=== PATIENT | female | born 2000 | race Caucasian/White ===

== ENCOUNTER 2021-01-15 10:42 | Inpatient (IN) | payer BC, OTHER ==
[~2021-01-15] VITALS: Ht 160 cm; Wt 87.2 kg
[2021-01-16] MEDS ORDERED: NEWBORN KIT ONE (05:12)
[2021-01-16] MEDS ORDERED: OXYTOCIN 30U/ 0.9% NaCL 500ML 500 ML ONE ×2 (05:12→16:38)
[2021-01-16] MEDS ORDERED: LIDOCAINE 1%, 20ML ONE (05:13)
[2021-01-16] MEDS ORDERED: MISOPROSTOL 200 MCG TABLET ONE (05:13)
[2021-01-16] MEDS ORDERED: FENTANYL PF 100 MCG/2ML IV PRN (05:30)
[2021-01-16] MEDS ORDERED: TERBUTALINE 1 MG/ML, 1ML IVPush PRN (05:30)
[2021-01-16] MEDS ORDERED: OXYTOCIN 30U/ 0.9% NaCL 500ML 500 ML IV ONE (05:30)
[2021-01-16] MEDS ORDERED: LACTATED RINGERS 1,000 ML IV SCH (05:30)
[2021-01-16] MEDS ORDERED: D5%-LACTATED RINGERS 1,000 ML IV SCH (05:30)
[2021-01-16] MEDS ORDERED: OXYTOCIN 30U/ 0.9% NaCL 500ML 500 ML IV PRN (05:30)
[2021-01-16] MEDS ORDERED: PLEASE ENTER ALLERGIES MC SCH (05:30)
[2021-01-16] MEDS ORDERED: TERBUTALINE 1 MG/ML, 1ML SQ PRN (05:30)
[2021-01-16] MEDS ORDERED: ONDANSETRON 2MG/ML, 2ML IVPush PRN (05:30)
[2021-01-16] MEDS ORDERED: PREN1TAB62 PO (05:31)
[2021-01-16 05:34] VITALS: BP 119/75
[2021-01-16 06:05] LABS: BASOPHILS % (AUTO) 1 % (0-1); EOSINOPHILS % (AUTO) 1 % (1-7); LYMPHOCYTES % (AUTO) 27 % (22-44); MEAN CORPUSCULAR HEMOGLOBIN 26.9 pg (27.0-34.8); MEAN CORPUSCULAR HGB CONC 33.2 g/dL (32.4-35.8); MEAN PLATELET VOLUME 9.2 fL (7.4-10.4); MONOCYTES % (AUTO) 5 % (2-9); NEUTROPHILS % (AUTO) 67 % (42-75); PLATELET COUNT 119 x10^3/uL (130-400); RED BLOOD COUNT 4.53 x10^6/uL (3.82-5.3); RED CELL DISTRIBUTION WIDTH 14.9 % (9.6-15.2)
[2021-01-16 06:21] LABS: MD NO
[2021-01-16 06:42] LABS: COCAINE SCREEN, URINE Negative (Negative); METHADONE SCREEN, URINE Negative (Negative); OPIATE SCREEN, URINE Negative (Negative)
[2021-01-16 06:43] LABS: AMPHETAMINE SCREEN, URINE Negative (Negative); BARBITURATE SCREEN, URINE Negative (Negative); BENZODIAZEPINE SCREEN, URINE Negative (Negative); CANNABINOID SCREEN, URINE Positive (Negative)
[2021-01-16] MEDS ORDERED: FENTANYL PF 100 MCG/2ML ONE ×4 (10:16→15:07)
[2021-01-16] MEDS: FENTANYL PF 100 MCG/2ML IVPush PRN ×4 (10:19→15:13)
[2021-01-16] MEDS ORDERED: ONDANSETRON 2MG/ML, 2ML ONE (14:07)
[2021-01-16] MEDS ORDERED: IBUPROFEN 600 MG TABLET ONE (16:05)
[2021-01-16] MEDS ORDERED: OXYcodone/APAP 5/325MG TABLET ONE (16:05)
[2021-01-16] MEDS: OXYcodone/APAP 5/325MG TABLET PO PRN ×2 (16:08→20:27)
[2021-01-16] MEDS: IBUPROFEN 600 MG TABLET PO PRN (16:08)
[2021-01-16] MEDS ORDERED: ACETAMINOPHEN 325 MG TABLET PO PRN ×2 (16:30)
[2021-01-16] MEDS ORDERED: MISOPROSTOL 200 MCG TABLET PR PRN (16:30)
[2021-01-16] MEDS ORDERED: CARBOPROST TROMETHAMINE 250 MCG/ML, 1ML IM PRN (16:30)
[2021-01-16] MEDS ORDERED: DIPH,PERTUSS(ACELL),TET VAC/PF NC IM-VACC PRN (16:30)
[2021-01-16] MEDS: OXYTOCIN 30U/ 0.9% NaCL 500ML 500 ML IV SCH (16:30)
[2021-01-16] MEDS ORDERED: METHYLERGONOVINE 0.2 MG/ML IM PRN (16:30)
[2021-01-16] MEDS ORDERED: OXYcodone/APAP 5/325MG TABLET PO PRN (16:30)
[2021-01-16] MEDS ORDERED: SIMETHICONE 80 MG CHEW TAB PO PRN (16:30)
[2021-01-16 18:10] VITALS: BP 128/84
[2021-01-16] MEDS: DOCUSATE 100 MG CAPSULE PO PRN ×2 (20:25→20:27)
[2021-01-16] MEDS ORDERED: ONDANSETRON ODT 4 MG PO PRN (21:00)
[2021-01-17] VITALS: BP 122/79
[2021-01-17] MEDS: OXYTOCIN 30U/ 0.9% NaCL 500ML 500 ML IV SCH (02:30)
[2021-01-17 04:00] VITALS: BP 120/82
[2021-01-17] MEDS: IBUPROFEN 600 MG TABLET PO PRN ×2 (04:19→09:39)
[2021-01-17] MEDS: OXYcodone/APAP 5/325MG TABLET PO PRN ×2 (04:20→09:39)
[2021-01-17 07:34] VITALS: BP 110/72
[2021-01-17] MEDS ORDERED: PRENATAL VIT/IRON/FA 1 EACH TABLET PO SCH (09:00)
[2021-01-17] MEDS: DOCUSATE 100 MG CAPSULE PO PRN (09:39)
[2021-01-17 11:49] VITALS: BP 106/70
== END 2021-01-17 16:45 | disposition home or self-care (01) | DRG 807 ==
LOC: LDIP 01-16 05:09 → 2NW 01-16 17:49
PROVIDERS: ADMIT Obstetrics & Gynecology Maternal & Fetal Medicine; ATTEND Obstetrics & Gynecology Maternal & Fetal Medicine
PROC: 10E0XZZ Delivery of Products of Conception, External Approach (ICD-10-PCS; principal; 2021-01-16)
PROC: 0KQM0ZZ Repair Perineum Muscle, Open Approach (ICD-10-PCS; 2021-01-16)
PROC: 3E033VJ Introduction of Other Hormone into Peripheral Vein, Percutaneous Approach (ICD-10-PCS; 2021-01-16)
DX: O70.1 Second degree perineal laceration during delivery (principal); Z37.0 Single live birth; Z20.822 Contact with and (suspected) exposure to COVID-19; Z3A.39 39 weeks gestation of pregnancy
CPT/HCPCS: 36415; 80307; 85025; 86592; 86850; 86900; G0378; J2405; J3010; Q0162; J2590; J7120; U0003